=== PATIENT | male | born 1995 | race Caucasian/White ===

== ENCOUNTER 2017-11-10 11:29 | Emergency (ER) | payer SELFPAY ==
[~2017-11-10] VITALS: Ht 172.7 cm; Wt 68.0 kg
[2017-11-10] MEDS ORDERED: AUGMENTIN875TAB PO (11:52)
[2017-11-10 12:27] VITALS: BP 120/75
== END 2017-11-10 12:34 | disposition home or self-care (01) | DRG 153 ==
LOC: ED 11:29
DX: J02.0 Streptococcal pharyngitis (principal); F17.210 Nicotine dependence, cigarettes, uncomplicated

== ENCOUNTER 2018-04-06 01:18 | Emergency (ER) | payer SELFPAY ==
[~2018-04-06] VITALS: Ht 175.3 cm; Wt 72.7 kg
[~2018-04-06 01:18] MED LIST: AUGMENTIN875TAB PO
[2018-04-06] MEDS ORDERED: AMOXICILLIN500 MG PO (02:05)
[2018-04-06] MEDS ORDERED: CLARITIN10 M1 PO (02:06)
[2018-04-06 02:30] VITALS: BP 117/67
== END 2018-04-06 02:30 | disposition home or self-care (01) | DRG 153 ==
LOC: ED 01:18
DX: J02.9 Acute pharyngitis, unspecified (principal); I88.9 Nonspecific lymphadenitis, unspecified; F17.210 Nicotine dependence, cigarettes, uncomplicated

== ENCOUNTER 2018-10-27 20:46 | Emergency (ER) | payer SELFPAY ==
[~2018-10-27] VITALS: Ht 175.3 cm; Wt 86.4 kg
[~2018-10-27 20:46] MED LIST changes: +AMOXICILLIN500 MG PO; +CLARITIN10 M1 PO
[2018-10-27 23:25] VITALS: BP 110/65
== END 2018-10-27 23:25 | disposition home or self-care (01) | DRG 563 ==
LOC: ED 20:46
DX: S93.401A Sprain of unspecified ligament of right ankle, initial encounter (principal); S93.601A Unspecified sprain of right foot, initial encounter; S90.31XA Contusion of right foot, initial encounter; F17.200 Nicotine dependence, unspecified, uncomplicated; W17.89XA Other fall from one level to another, initial encounter; Y93.89 Activity, other specified